=== PATIENT | male | born 1950 | race Caucasian/White ===

== ENCOUNTER 2019-04-06 16:19 | Emergency (ER) | payer MEDICARE, MEDICAID ==
[2019-04-06 16:42] VITALS: BP 140/75; PULSE 79
[2019-04-06] MEDS ORDERED: Sodium Chloride 0.9% 10 ML Syringe FLUSH PRN (17:04)
[2019-04-06] MEDS ORDERED: Sodium Chloride 0.9% 1,000 ML IV SCH (17:15)
--- NOTE | 2019-04-06 17:52 | CT ---
Head CT Technique: Multiple axial sections through the brain were obtained. Intravenous contrast was not utilized. Comparison: Most recent intracranial imaging is brain MRI of 06/08/18. Findings: Ventricles along with basal cisterns and sulci over the convexities are mildly prominent. No abnormal parenchymal densities are seen. No evidence of intracranial hemorrhage. No midline shift or mass effect is seen. Bone window settings were reviewed which show the visualized paranasal sinuses and mastoid sinuses to appear clear. No acute calvarial abnormality is seen. Impression: 1. Mild generalized atrophy. 2. No acute intracranial abnormality is identified. No appreciable change is seen from prior MRI brain exam. Diagnostic code #2
--- NOTE | 2019-04-06 18:13 | EDM.PDOC ---
ED HPI GENERAL MEDICAL PROBLEM - General Chief Complaint: General Stated Complaint: DIZZINESS/LIGHT HEADEDNESS Time Seen by Provider: 04/06/19 16:46 Source of Information: Reports: Patient, Family History Limitations: Reports: No Limitations - History of Present Illness INITIAL COMMENTS - FREE TEXT/NARRATIVE: The patient presents with lightheadedness and dizziness. This started a couple days ago and it is worse today. He also had dry eyes for over a week. He also has palpitations and he had some shortness of breath. He also has trouble walking. He has no fever, chills, cough, or chest pain. He has no nausea or vomiting. He has no numbness or weakness. He just stopped an SSRI 4 days ago. He was on it for about 2 weeks and switched between 3 different ones. He has a runny nose and he says his allergies kick in from the rains. He has no headache. Onset: Gradual Duration: Day(s): Severity: Moderate Improves with: Reports: None Worsens with: Reports: None Associated Symptoms: Denies: Chest Pain, Cough, Fever/Chills, Headaches, Nausea/ Vomiting, Shortness of Breath - Related Data Allergies Allergy/AdvReac Type Severity Reaction Status Date / Time morphine AdvReac Nausea and Verified 04/06/19 16:42 Vomiting Home Meds: Home Meds ClonazePAM [KlonoPIN] 0.5 mg PO TID 04/06/19 [History] Hydrocodone/Acetaminophen [Hydrocodon-Acetaminoph 2.5-325] 0.5 mg PO TID [History] Loratadine [Claritin] 10 mg PO DAILY PRN #30 tab 04/06/19 [Rx] Rosuvastatin [Crestor] 10 mg PO DAILY 04/06/19 [History] amLODIPine [Norvasc] 10 mg PO DAILY 04/06/19 [History] diazePAM [Valium] 5 mg PO TID #15 tab 04/06/19 [Rx] Past Medical History HEENT History: Reports: Allergic Rhinitis, Cataract, Hard of Hearing Cardiovascular History: Reports: High Cholesterol Other Cardiovascular History: mitral valve prolapse Respiratory History: Reports: Asthma, Bronchitis, Recurrent, COPD, Pneumonia, Recurrent, SOB Other Respiratory History: Emphysema Gastrointestinal History: Reports: None Genitourinary History: Reports: BPH, Urinary Incontinence Musculoskeletal History: Reports: Arthritis Neurological History: Reports: None Psychiatric History: Reports: Anxiety, Depression Endocrine/Metabolic History: Reports: None Hematologic History: Reports: None Immunologic History: Reports: None Oncologic (Cancer) History: Reports: None Dermatologic History: Reports: None - Infectious Disease History Infectious Disease History: Reports: Measles, Mumps - Past Surgical History Head Surgeries/Procedures: Reports: None Cardiovascular Surgical History: Reports: None Neurological Surgical History: Reports: Lumbar Spine Musculoskeletal Surgical History: Reports: Shoulder Replacement, Shoulder Surgery Other Musculoskeletal Surgeries/Procedures:: Back Surgery on lumbar spine. Social & Family History - Family History Cardiac: Reports: Pacemaker Oncologic: Reports: Bone, Breast, Prostate - Tobacco Use Smoking Status *Q: Current Every Day Smoker Years of Tobacco use: 45 Packs/Tins Daily: 0.5 - Caffeine Use Caffeine Use: Reports: Coffee, Soda - Recreational Drug Use Recreational Drug Use: No ED ROS GENERAL - Review of Systems Review Of Systems: See Below Constitutional: Reports: No Symptoms HEENT: Reports: Other (Dry eyes) Respiratory: Reports: Shortness of Breath. Denies: Cough Cardiovascular: Reports: No Symptoms Endocrine: Reports: No Symptoms GI/Abdominal: Reports: No Symptoms : Reports: No Symptoms Musculoskeletal: Reports: No Symptoms Neurological: Reports: Dizziness. Denies: Headache ED EXAM, GENERAL - Physical Exam Exam: See Below Exam Limited By: No Limitations General Appearance: Alert, No Apparent Distress Eye Exam: Bilateral Eye: EOMI, PERRL Ears: Normal External Exam Nose: Normal Inspection Head: Atraumatic, Normocephalic Neck: Normal Inspection Respiratory/Chest: No Respiratory Distress, Lungs Clear, Normal Breath Sounds Cardiovascular: Regular Rate, Rhythm, No Edema, No Murmur GI/Abdominal: Soft, Non-Tender, No Organomegaly, No Mass Back Exam: Normal Inspection Extremities: Normal Inspection Neurological: Alert, Oriented, No Motor/Sensory Deficits EKG INTERPRETATION EKG Date: 04/06/19 Time: 17:09 Rhythm: NSR Rate (Beats/Min): 69 [place]: Normal P-Wave: Present QRS: Normal ST-T: Normal QT: Normal Course - Vital Signs Last Recorded V/S: Last Vital Signs Temp 97.4 F 04/06/19 16:38 Pulse 79 04/06/19 16:38 Resp 16 04/06/19 16:38 BP 140/75 04/06/19 16:38 Pulse Ox 96 04/06/19 16:38 - Orders/Labs/Meds Orders: Active Orders 24 hr Category Date Time Status Cardiac Monitoring [RC] . DIRECTED Care 04/06/19 17:04 Active EKG Documentation Completion [RC] STAT Care 04/06/19 17:05 Active Influenza Vaccine Charge [RC] .DISCHARGE Care 04/06/19 16:50 Active Peripheral IV Care [RC] . DIRECTED Care 04/06/19 17:06 Active Chest 1V Frontal [CR] Stat Exams 04/06/19 17:06 Taken Sodium Chloride 0.9% [Normal Saline] 1,000 ml Med 04/06/19 17:15 Active IV ASDIRECTED Sodium Chloride 0.9% [Saline Flush] Med 04/06/19 17:04 Active 10 ml FLUSH ASDIRECTED PRN Peripheral IV Insertion Adult [OM.PC] Stat Oth 04/06/19 17:04 Ordered Medication Orders Sodium Chloride (Normal Saline) 1,000 mls @ 125 mls/hr IV ASDIRECTED BELA Last Admin: 04/06/19 18:14 Dose: 125 mls/hr Sodium Chloride (Saline Flush) 10 ml FLUSH ASDIRECTED PRN PRN Reason: Keep Vein Open Last Admin: 04/06/19 18:15 Dose: 10 ml Labs: Laboratory Tests 04/06/19 04/06/19 Range/Units 17:50 17:50 WBC 6.56 (4.23-9.07) K/mm3 RBC 4.56 L (4.63-6.08) M/mm3 Hgb 13.8 (13.7-17.5) gm/dl Hct 38.6 L (40.1-51.0) % MCV 84.6 (79.0-92.2) fl MCH 30.3 (25.7-32.2) pg MCHC 35.8 H (32.2-35.5) g/dl RDW Std Deviation 40.9 (35.1-43.9) fL Plt Count 251 (163-337) K/mm3 MPV 10.0 (9.4-12.3) fl Neut % (Auto) 62.1 (34.0-67.9) % Lymph % (Auto) 27.1 (21.8-53.1) % [place] % (Auto) 8.4 (5.3-12.2) % Eos % (Auto) 1.8 (0.8-7.0) Baso % (Auto) 0.6 (0.1-1.2) % Neut # (Auto) 4.07 (1.78-5.38) K/mm3 Lymph # (Auto) 1.78 (1.32-3.57) K/mm3 [place] # (Auto) 0.55 (0.30-0.82) K/mm3 Eos # (Auto) 0.12 (0.04-0.54) K/mm3 Baso # (Auto) 0.04 (0.01-0.08) K/mm3 Sodium 137 (136-145) mEq/L Potassium 3.6 (3.5-5.1) mEq/L Chloride 105 (98-107) mEq/L Carbon Dioxide 25 (21-32) mEq/L Anion Gap 10.6 (5-15) BUN 7 (7-18) mg/dL Creatinine 1.1 (0.7-1.3) mg/dL Est Cr Clr Drug Dosing 71.63 mL/min Estimated GFR (MDRD) > 60 (>60) mL/min BUN/Creatinine Ratio 6.4 L (14-18) Glucose 97 (80-115) mg/dL Calcium 8.8 (8.5-10.1) mg/dL Magnesium 2.3 (1.8-2.4) mg/dl Total Bilirubin 0.8 (0.2-1.0) mg/dL AST 12 L (15-37) U/L ALT 23 (16-63) U/L Alkaline Phosphatase 78 (46-116) U/L Troponin I < 0.017 (0.00-0.056) ng/mL Total Protein 6.9 (6.4-8.2) g/dl Albumin 3.6 (3.4-5.0) g/dl Globulin 3.3 gm/dL Albumin/Globulin Ratio 1.1 (1-2) Meds: Medications Generic Name Dose Route Start Last Admin Trade Name Freq PRN Reason Stop Dose Admin Sodium Chloride 1,000 mls @ 125 mls/hr 04/06/19 17:15 04/06/19 18:14 Normal Saline IV 125 mls/hr ASDIRECTED BELA Administration Sodium Chloride 10 ml 04/06/19 17:04 10/01/19 18:15 Saline Flush FLUSH 10 ml ASDIRECTED PRN Administration Keep Vein Open Discontinued Medications Generic Name Dose Route Start Last Admin Trade Name Margaret PRN Reason Stop Dose Admin Diazepam 5 mg 04/06/19 18:22 04/06/19 18:56 Valium IVPUSH 04/06/19 18:23 5 mg ONETIME ONE Administration Influenza Virus Vaccine 180 mcg 04/06/19 17:00 04/06/19 18:15 Fluzone High-Dose 2019-20 Syringe IM 04/06/19 17:01 180 mcg .ONCE ONE Administration - Re-Assessments/Exams Free Text/Narrative Re-Assessment/Exam: 04/06/19 18:20 I ordered an IV NS at 125ml/hr, labs, EKG and CT of his head. His EKG shows a NSR with no acute changes. The CT shows mild generalized atrophy. No acute intracranial abnormality is identified. No appreciable change is seen from prior MRI brain exam. 04/06/19 19:36 His CBC and CMP look good. His troponin is negative. I will get him on some valium and have him stop the SSRIs. I will also have him try some claritin. Departure - Departure Time of Disposition: 19:40 Disposition: Home, Self-Care 01 Condition: Good Clinical Impression: Rhinorrhea Adverse reaction to SSRI antidepressant drug Qualifiers: Encounter type: initial encounter Qualified Code(s): T43.225A - Adverse effect of selective serotonin reuptake inhibitors, initial encounter - Discharge Information *PRESCRIPTION DRUG MONITORING PROGRAM REVIEWED*: No *COPY OF PRESCRIPTION DRUG MONITORING REPORT IN PATIENT REEMA: No Prescriptions: diazePAM [Valium] 5 mg PO TID #15 tab Loratadine [Claritin] 10 mg PO DAILY PRN #30 tab PRN Reason: Allergies Referrals: Abebe Montanez MD [Primary Care Provider] - Forms: ED Department Discharge Additional Instructions: Take the valium 5mg 3 times per day for 5 days. Do not take the klonopin. Take the claritin daily as needed for allergy symptoms. Do not take the prozac or the other medications. Please return if you are worse. - My Orders Last 24 Hours: My Active Orders 04/06/19 16:50 Influenza Vaccine Charge [RC] .DISCHARGE 04/06/19 17:04 Cardiac Monitoring [RC] . DIRECTED Sodium Chloride 0.9% [Saline Flush] 10 ml FLUSH ASDIRECTED PRN Peripheral IV Insertion Adult [OM.PC] Stat 04/06/19 17:05 EKG Documentation Completion [RC] STAT 04/06/19 17:06 Peripheral IV Care [RC] . DIRECTED Chest 1V Frontal [CR] Stat 04/06/19 17:15 Sodium Chloride 0.9% [Normal Saline] 1,000 ml IV ASDIRECTED - Assessment/Plan Last 24 Hours: My Active Orders 04/06/19 16:50 Influenza Vaccine Charge [RC] .DISCHARGE 04/06/19 17:04 Cardiac Monitoring [RC] . DIRECTED Sodium Chloride 0.9% [Saline Flush] 10 ml FLUSH ASDIRECTED PRN Peripheral IV Insertion Adult [OM.PC] Stat 04/06/19 17:05 EKG Documentation Completion [RC] STAT 04/06/19 17:06 Peripheral IV Care [RC] . DIRECTED Chest 1V Frontal [CR] Stat 04/06/19 17:15 Sodium Chloride 0.9% [Normal Saline] 1,000 ml IV ASDIRECTED
--- NOTE | 2019-04-07 06:54 | CR ---
Chest: Portable view of the chest was obtained. Comparison: Prior chest x-ray of 06/11/16. Heart size is within normal limits for portable technique. Tortuous thoracic aorta is seen. Nodule is identified within the right lung base. This presumably is due to a calcification. Lungs otherwise are clear. Bony structures are grossly intact. Impression: 1. Findings as noted above believed to be incidental. 2. Nothing acute is appreciated on portable chest x-ray. Diagnostic code #2
== END 2019-04-06 19:59 | disposition home or self-care (01) ==
LOC: JD.ED 16:19
DX: J34.89 Other specified disorders of nose and nasal sinuses (principal); T43.225A Adverse effect of selective serotonin reuptake inhibitors, initial encounter; F17.210 Nicotine dependence, cigarettes, uncomplicated; H26.9 Unspecified cataract; E78.00 Pure hypercholesterolemia, unspecified; J43.9 Emphysema, unspecified; J45.909 Unspecified asthma, uncomplicated; F41.9 Anxiety disorder, unspecified; Z88.5 Allergy status to narcotic agent; Z23 Encounter for immunization; Z79.899 Other long term (current) drug therapy
CPT/HCPCS: 36415; 70450; 71045; 80053; 83735; 84484; 85025; 90662; 93005; 96361; 96374; 99284; G0008; J3360; J7040

== ENCOUNTER 2019-06-24 07:19 | Day surgery (SDC) | payer MEDICARE, MEDICAID ==
[~2019-06-24 07:19] MED LIST: Cefuroxime 10 MG/ML SYRINGE EYELF SCH; Lidocaine 1% PF 2 ML SDV INJECT SCH; Pilocarpine 4% Ophth Soln 15 ML Bot EYELF SCH
[2019-06-24] MEDS: Polymyxin B/Trimethoprim 10 ML Bottle EYELF SCH ×3 (07:42→09:26)
--- NOTE | 2019-06-24 07:42 | PCM.PREANE ---
Preanesthetic Assessment - Anesthesia/Transfusion/Family Hx Anesthesia History: Prior Anesthesia Without Reaction Family History of Anesthesia Reaction: No Transfusion History: No Prior Transfusion(s) - Review of Systems General: No Symptoms Pulmonary: Other (asthma, used inhaler this am) Cardiovascular: No Symptoms Other: Reports: Depression, Anxiety - Physical Assessment NPO Status Date: 06/23/19 NPO Status Time: 20:15 Weight: 89.811 kg ASA Class: 2 Mental Status: Alert & Oriented x3 Dentition: Reports: Missing Tooth/Teeth ROM/Head Extension: Full Lungs: Clear to Auscultation Cardiovascular: Regular Rate, Regular Rhythm, Bradycardia, Murmurs - Allergies Allergies/Adverse Reactions: Allergies Allergy/AdvReac Type Severity Reaction Status Date / Time morphine AdvReac Nausea and Verified 06/23/19 17:01 Vomiting - Blood Blood Available: No Product(s) Available: None - Anesthesia Plan Pre-Op Medication Ordered: None - Acknowledgements Anesthesia Type Planned: MAC Pt an Appropriate Candidate for the Planned Anesthesia: Yes Alternatives and Risks of Anesthesia Discussed w Pt/Guardian: Yes Pt/Guardian Understands and Agrees with Anesthesia Plan: Yes PreAnesthesia Questionnaire HEENT History: Reports: Allergic Rhinitis, Cataract, Hard of Hearing Cardiovascular History: Reports: High Cholesterol Other Cardiovascular History: mitral valve prolapse Respiratory History: Reports: Asthma, Bronchitis, Recurrent, COPD, Pneumonia, Recurrent, SOB Other Respiratory History: Emphysema Gastrointestinal History: Reports: None Genitourinary History: Reports: BPH, Urinary Incontinence Musculoskeletal History: Reports: Arthritis Neurological History: Reports: None Psychiatric History: Reports: Anxiety, Depression Endocrine/Metabolic History: Reports: None Hematologic History: Reports: None Immunologic History: Reports: None Oncologic (Cancer) History: Reports: None Dermatologic History: Reports: None - Infectious Disease History Infectious Disease History: Reports: Measles, Mumps - Past Surgical History Head Surgeries/Procedures: Reports: None Cardiovascular Surgical History: Reports: None Neurological Surgical History: Reports: Lumbar Spine Musculoskeletal Surgical History: Reports: Shoulder Replacement, Shoulder Surgery Other Musculoskeletal Surgeries/Procedures:: Back Surgery on lumbar spine. - HOME MEDS Home Medications: Home Meds ClonazePAM [KlonoPIN] 0.5 mg PO TID PRN 04/06/19 [History] Loratadine [Claritin] 10 mg PO DAILY PRN #30 tab 04/06/19 [Rx] Rosuvastatin [Crestor] 10 mg PO DAILY 10/01/19 [History] amLODIPine [Norvasc] 5 mg PO DAILY 04/06/19 [History] Albuterol/Ipratropium [Combivent Respimat] 1 puff IH QID PRN 05/26/19 [History] FLUoxetine HCl [Prozac] 40 mg PO DAILY 05/26/19 [History] - CURRENT (IN HOUSE) MEDS Current Meds: Current Medications Brimonidine Tartrate (Alphagan 0.2% Ophth Soln) 0 ml EYELF ASDIRECTED BELA Stop: 06/24/19 18:00 Cefuroxime Sodium (Zinacef) 0 mg EYELF ASDIRECTED BELA Stop: 06/24/19 18:00 Lidocaine HCl (Xylocaine-Mpf 1%) 0 ml INJECT ASDIRECTED BELA Stop: 06/24/19 18:00 Phenylephrine HCl (Flo-Synephrine 2.5% Ophth Soln) 0 ml EYELF ASDIRECTED BELA Stop: 06/24/19 18:00 Pilocarpine HCl (Pilocar 4% Ophth Soln) 0 ml EYELF ASDIRECTED BELA Stop: 06/24/19 18:00 Polymyxin/Trimethoprim Sulfate (Polytrim Ophth Soln) 0 ml EYELF ASDIRECTED BELA Stop: 06/24/19 18:00 Tetracaine HCl (Tetracaine 0.5% Steri-Unit Paige) 0 ml EYELF ASDIRECTED BELA Stop: 06/24/19 18:00 Tropicamide (Mydriacyl 1% Ophth Soln) 0 ml EYELF ASDIRECTED BELA Stop: 06/24/19 18:00
[2019-06-24] MEDS: Brimonidine 0.2% Ophth Soln 5 ML Bottle EYELF SCH ×3 (07:49→09:26)
[2019-06-24] MEDS: Phenylephrine 2.5% Ophth Soln 2 ML Bot EYELF SCH ×5 (07:54→09:00)
[2019-06-24] MEDS: Tropicamide 1% Ophth Soln 15 ML Bottle EYELF SCH ×4 (07:59→08:43)
[2019-06-24] MEDS ORDERED: Propofol 200 MG/20 ML SDV ONE (08:12)
[2019-06-24] MEDS ORDERED: Lidocaine 1%/Sod Bicarbonate in NS 8.4% 1 ML Syringe IDERM PRN (08:18)
[2019-06-24] MEDS ORDERED: Sodium Chloride 0.9% 10 ML Syringe FLUSH PRN (08:18)
[2019-06-24] MEDS ORDERED: Lactated Ringers 1,000 ML IV SCH (08:30)
[2019-06-24] MEDS: Tetracaine HCl/PF 0.5% 4 ML Bottle EYELF SCH ×2 (08:46→09:06)
--- NOTE | 2019-06-24 09:27 | PCM48HPAN ---
Post Anesthesia Note - EVALUATION WITHIN 48HRS OF ANESTHETIC Vital Signs in Normal Range: Yes Patient Participated in Evaluation: Yes Respiratory Function Stable: Yes Airway Patent: Yes Cardiovascular Function Stable: Yes Hydration Status Stable: Yes Pain Control Satisfactory: Yes Nausea and Vomiting Control Satisfactory: Yes Mental Status Recovered: Yes Vital Signs: Last Vital Signs Temp 36.2 C 06/24/19 07:25 Pulse 85 06/24/19 07:25 Resp 16 06/24/19 07:25 BP 115/81 06/24/19 07:25 Pulse Ox 94 L 06/24/19 07:25
[2019-06-24 10:08] VITALS: BP 111/73; PULSE 66
== END 2019-06-24 09:40 | disposition home or self-care (01) ==
LOC: JD.SDS 07:19
PROVIDERS: ATTEND Ophthalmology
DX: H25.812 Combined forms of age-related cataract, left eye (principal); H52.31 Anisometropia; H35.373 Puckering of macula, bilateral; H43.811 Vitreous degeneration, right eye; H02.831 Dermatochalasis of right upper eyelid; H02.834 Dermatochalasis of left upper eyelid; I10 Essential (primary) hypertension; E78.00 Pure hypercholesterolemia, unspecified; J43.9 Emphysema, unspecified; M19.90 Unspecified osteoarthritis, unspecified site; F41.9 Anxiety disorder, unspecified; F32.9 Major depressive disorder, single episode, unspecified; F17.210 Nicotine dependence, cigarettes, uncomplicated; Z96.1 Presence of intraocular lens; Z88.5 Allergy status to narcotic agent
CPT/HCPCS: 66984; J0697; J2001; J2704; J7120

== ENCOUNTER 2019-06-30 09:53 | Emergency (ER) | payer MEDICARE, MEDICAID ==
[2019-06-30 10:12] VITALS: BP 140/86; PULSE 81
[2019-06-30] MEDS ORDERED: Famotidine 20 MG/2 ML SDV IVPUSH ONE (10:16)
[2019-06-30] MEDS ORDERED: Sodium Chloride 0.9% 10 ML Syringe FLUSH PRN (10:16)
[2019-06-30] MEDS ORDERED: Ondansetron 4 MG/2 ML SDV IVPUSH ONE (10:16)
--- NOTE | 2019-06-30 10:17 | EDM.PDOC ---
ED HPI GENERAL MEDICAL PROBLEM - General Chief Complaint: Abdominal Pain Stated Complaint: ABD PAIN, SLEEPING ALOT, DIZZY Time Seen by Provider: 06/30/19 10:15 Source of Information: Reports: Patient, RN Notes Reviewed - History of Present Illness INITIAL COMMENTS - FREE TEXT/NARRATIVE: Patient has had abdominal pain, nausea, no appetite for many days. Feels weak, dizzy when standing or walking. No Baker, fever or chills. Just had cataract surgery about 6 days ago. No eye pain or visual difficulty at this time. Abdomen Pain Score (Numeric/FACES): 8 - Related Data Allergies Allergy/AdvReac Type Severity Reaction Status Date / Time morphine AdvReac Nausea and Verified 06/30/19 10:04 Vomiting Home Meds: Home Meds ClonazePAM [KlonoPIN] 0.5 mg PO TID PRN 04/06/19 [History] Loratadine [Claritin] 10 mg PO DAILY PRN #30 tab 04/06/19 [Rx] Rosuvastatin [Crestor] 10 mg PO DAILY 04/06/19 [History] amLODIPine [Norvasc] 7.5 mg PO DAILY 04/06/19 [History] Albuterol/Ipratropium [Combivent Respimat] 1 puff IH QID PRN 05/26/19 [History] FLUoxetine HCl [Prozac] 40 mg PO DAILY 05/26/19 [History] Albuterol/Ipratropium [Combivent Respimat] 3 inh INH TID 06/30/19 [History] Hydrocodone/Acetaminophen [Hydrocodon-Acetaminophn 10-325] 1 tab PO QID [History] Past Medical History HEENT History: Reports: Allergic Rhinitis, Cataract, Hard of Hearing Cardiovascular History: Reports: High Cholesterol Other Cardiovascular History: mitral valve prolapse Respiratory History: Reports: Asthma, Bronchitis, Recurrent, COPD, Pneumonia, Recurrent, SOB Other Respiratory History: Emphysema Gastrointestinal History: Reports: None Genitourinary History: Reports: BPH, Urinary Incontinence Musculoskeletal History: Reports: Arthritis Neurological History: Reports: None Psychiatric History: Reports: Anxiety, Depression Endocrine/Metabolic History: Reports: None Hematologic History: Reports: None Immunologic History: Reports: None Oncologic (Cancer) History: Reports: None Dermatologic History: Reports: None - Infectious Disease History Infectious Disease History: Reports: Measles, Mumps - Past Surgical History Head Surgeries/Procedures: Reports: None Cardiovascular Surgical History: Reports: None Neurological Surgical History: Reports: Lumbar Spine Musculoskeletal Surgical History: Reports: Shoulder Replacement, Shoulder Surgery Other Musculoskeletal Surgeries/Procedures:: Back Surgery on lumbar spine. Social & Family History - Family History Cardiac: Reports: Pacemaker Oncologic: Reports: Bone, Breast, Prostate - Caffeine Use Caffeine Use: Reports: Coffee, Soda ED ROS GENERAL - Review of Systems Review Of Systems: See Below Constitutional: Denies: Fever, Chills, Diaphoresis HEENT: Denies: Throat Pain, Vertigo, Vision Change Respiratory: Denies: Shortness of Breath Cardiovascular: Denies: Chest Pain GI/Abdominal: Reports: Nausea, Vomiting (times 1 earlier today). Denies: Abdominal Pain, Diarrhea Musculoskeletal: Reports: No Symptoms Neurological: Reports: Dizziness, Weakness (generalized, no focal weakness). Denies: Headache, Numbness, Tingling, Trouble Speaking ED EXAM, GI/ABD - Physical Exam Exam: See Below General Appearance: Alert, No Apparent Distress Throat/Mouth: Normal Inspection, Normal Oropharynx Head: Atraumatic. No: Facial Swelling Neck: Supple, Full Range of Motion Respiratory/Chest: No Respiratory Distress, Lungs Clear, Normal Breath Sounds Cardiovascular: Regular Rate, Rhythm GI/Abdominal Exam: Soft, Tender (mild diffuse tenderness upper and mid abd). No : Guarding, Rebound Extremities: Normal Inspection, Normal Range of Motion. No: Pedal Edema, Leg Pain, Redness Neurological: Alert, Oriented, No Motor/Sensory Deficits Skin Exam: Warm, Dry, Normal Color Course - Vital Signs Last Recorded V/S: Last Vital Signs Temp 98.3 F 06/30/19 10:04 Pulse 81 06/30/19 10:04 Resp 15 06/30/19 10:04 BP 140/86 06/30/19 10:04 Pulse Ox 97 06/30/19 10:04 - Orders/Labs/Meds Orders: Active Orders 24 hr Category Date Time Status Peripheral IV Care [RC] . DIRECTED Care 06/30/19 10:17 Active Sodium Chloride 0.9% [Normal Saline] 1,000 ml Med 06/30/19 10:30 Active IV ONETIME Sodium Chloride 0.9% [Saline Flush] Med 06/30/19 10:16 Active 10 ml FLUSH ASDIRECTED PRN Peripheral IV Insertion Adult [OM.PC] Stat Oth 06/30/19 10:16 Ordered Medication Orders Sodium Chloride (Normal Saline) 1,000 mls @ 999 mls/hr IV ONETIME BELA Last Admin: 06/30/19 10:28 Dose: 999 mls/hr Sodium Chloride (Saline Flush) 10 ml FLUSH ASDIRECTED PRN PRN Reason: Keep Vein Open Last Admin: 06/30/19 10:29 Dose: 10 ml Labs: Laboratory Tests 06/30/19 06/30/19 06/30/19 Range/Units 10:25 10:25 10:25 WBC 5.84 (4.23-9.07) K/mm3 RBC 4.86 (4.63-6.08) M/mm3 Hgb 14.3 (13.7-17.5) gm/dl Hct 40.8 (40.1-51.0) % MCV 84.0 (79.0-92.2) fl MCH 29.4 (25.7-32.2) pg MCHC 35.0 (32.2-35.5) g/dl RDW Std Deviation 38.6 (35.1-43.9) fL Plt Count 236 (163-337) K/mm3 MPV 9.7 (9.4-12.3) fl Neut % (Auto) 70.6 H (34.0-67.9) % Lymph % (Auto) 17.3 L (21.8-53.1) % [place] % (Auto) 9.2 (5.3-12.2) % Eos % (Auto) 2.6 (0.8-7.0) Baso % (Auto) 0.3 (0.1-1.2) % Neut # (Auto) 4.12 (1.78-5.38) K/mm3 Lymph # (Auto) 1.01 L (1.32-3.57) K/mm3 [place] # (Auto) 0.54 (0.30-0.82) K/mm3 Eos # (Auto) 0.15 (0.04-0.54) K/mm3 Baso # (Auto) 0.02 (0.01-0.08) K/mm3 Sodium 141 (136-145) mEq/L Potassium 3.5 (3.5-5.1) mEq/L Chloride 105 (98-107) mEq/L Carbon Dioxide 23 (21-32) mEq/L Anion Gap 16.5 H (5-15) BUN 8 (7-18) mg/dL Creatinine 1.0 (0.7-1.3) mg/dL Est Cr Clr Drug Dosing 78.79 mL/min Estimated GFR (MDRD) > 60 (>60) mL/min BUN/Creatinine Ratio 8.0 L (14-18) Glucose 98 (80-115) mg/dL Calcium 8.6 (8.5-10.1) mg/dL Total Bilirubin 1.3 H (0.2-1.0) mg/dL AST 15 (15-37) U/L ALT 25 (16-63) U/L Alkaline Phosphatase 84 (46-116) U/L C-Reactive Protein < 0.2 (<1.0) mg/dL Total Protein 7.4 (6.4-8.2) g/dl Albumin 3.9 (3.4-5.0) g/dl Globulin 3.5 gm/dL Albumin/Globulin Ratio 1.1 (1-2) Lipase (73-393) U/L 06/30/19 Range/Units 10:25 WBC (4.23-9.07) K/mm3 RBC (4.63-6.08) M/mm3 Hgb (13.7-17.5) gm/dl Hct (40.1-51.0) % MCV (79.0-92.2) fl MCH (25.7-32.2) pg MCHC (32.2-35.5) g/dl RDW Std Deviation (35.1-43.9) fL Plt Count (163-337) K/mm3 MPV (9.4-12.3) fl Neut % (Auto) (34.0-67.9) % Lymph % (Auto) (21.8-53.1) % [place] % (Auto) (5.3-12.2) % Eos % (Auto) (0.8-7.0) Baso % (Auto) (0.1-1.2) % Neut # (Auto) (1.78-5.38) K/mm3 Lymph # (Auto) (1.32-3.57) K/mm3 [place] # (Auto) (0.30-0.82) K/mm3 Eos # (Auto) (0.04-0.54) K/mm3 Baso # (Auto) (0.01-0.08) K/mm3 Sodium (136-145) mEq/L Potassium (3.5-5.1) mEq/L Chloride (98-107) mEq/L Carbon Dioxide (21-32) mEq/L Anion Gap (5-15) BUN (7-18) mg/dL Creatinine (0.7-1.3) mg/dL Est Cr Clr Drug Dosing mL/min Estimated GFR (MDRD) (>60) mL/min BUN/Creatinine Ratio (14-18) Glucose (80-115) mg/dL Calcium (8.5-10.1) mg/dL Total Bilirubin (0.2-1.0) mg/dL AST (15-37) U/L ALT (16-63) U/L Alkaline Phosphatase (46-116) U/L C-Reactive Protein (<1.0) mg/dL Total Protein (6.4-8.2) g/dl Albumin (3.4-5.0) g/dl Globulin gm/dL Albumin/Globulin Ratio (1-2) Lipase 59 L (73-393) U/L Meds: Medications Generic Name Dose Route Start Last Admin Trade Name Freq PRN Reason Stop Dose Admin Sodium Chloride 1,000 mls @ 999 mls/hr 06/30/19 10:30 06/30/19 10:28 Normal Saline IV 999 mls/hr ONETIME BELA Administration Sodium Chloride 10 ml 06/30/19 10:16 06/30/19 10:29 Saline Flush FLUSH 10 ml ASDIRECTED PRN Administration Keep Vein Open Discontinued Medications Generic Name Dose Route Start Last Admin Trade Name Freq PRN Reason Stop Dose Admin Famotidine 20 mg 06/30/19 10:16 06/30/19 10:29 Pepcid IVPUSH 06/30/19 10:17 20 mg ONETIME ONE Administration Ondansetron HCl 4 mg 06/30/19 10:16 06/30/19 10:29 Zofran IVPUSH 06/30/19 10:17 4 mg ONETIME ONE Administration - Re-Assessments/Exams Free Text/Narrative Re-Assessment/Exam: 06/30/19 12:16 Feels very much better after 1 L normal saline, IV Zofran. Labs came back relatively normal showing very mild dehydration only. Discharge instructions as documented. Departure - Departure Time of Disposition: 12:16 Disposition: Home, Self-Care 01 Condition: Fair Clinical Impression: Dizziness, nonspecific, Dehydration - Discharge Information Referrals: Abebe Montanez MD [Primary Care Provider] - Forms: ED Department Discharge Additional Instructions: Drink plenty of water to better maintain hydration, try eat regular meals and snacks as best he can as tolerated. Moves slowly and carefully, increase activity as tolerated. Follow-up clinic in a couple of weeks as planned, return to ED as needed if symptoms worsening in any way Sepsis Event Note - Evaluation Sepsis Screening Result: No Definite Risk - Focused Exam Vital Signs: Vital Signs Temp Pulse Resp BP Pulse Ox 06/30/19 10:04 98.3 F 81 15 140/86 97 Date Exam was Performed: 06/30/19 Time Exam was Performed: 12:16 - My Orders Last 24 Hours: My Active Orders 06/30/19 10:16 Sodium Chloride 0.9% [Saline Flush] 10 ml FLUSH ASDIRECTED PRN Peripheral IV Insertion Adult [OM.PC] Stat 06/30/19 10:17 Peripheral IV Care [RC] . DIRECTED 06/30/19 10:30 Sodium Chloride 0.9% [Normal Saline] 1,000 ml IV ONETIME - Assessment/Plan Last 24 Hours: My Active Orders 06/30/19 10:16 Sodium Chloride 0.9% [Saline Flush] 10 ml FLUSH ASDIRECTED PRN Peripheral IV Insertion Adult [OM.PC] Stat 06/30/19 10:17 Peripheral IV Care [RC] . DIRECTED 06/30/19 10:30 Sodium Chloride 0.9% [Normal Saline] 1,000 ml IV ONETIME
[2019-06-30] MEDS ORDERED: Sodium Chloride 0.9% 1,000 ML IV SCH (10:30)
== END 2019-06-30 12:41 | disposition home or self-care (01) ==
LOC: JD.ED 09:53
DX: E86.0 Dehydration (principal); F41.9 Anxiety disorder, unspecified; F32.9 Major depressive disorder, single episode, unspecified; E78.00 Pure hypercholesterolemia, unspecified; Z88.5 Allergy status to narcotic agent
CPT/HCPCS: 36415; 80053; 83690; 85025; 86140; 96361; 96374; 96375; 99284; J2405; J3490; J7030; 99283

== ENCOUNTER 2020-10-31 08:10 | Day surgery (SDC) | payer MEDICARE, MEDICAID ==
[~2020-10-31 08:10] MED LIST changes: -Cefuroxime 10 MG/ML SYRINGE EYELF SCH; -Lidocaine 1% PF 2 ML SDV INJECT SCH; +Lidocaine 1%/Sod Bicarbonate in NS 8.4% 1 ML Syringe IDERM PRN; -Pilocarpine 4% Ophth Soln 15 ML Bot EYELF SCH; +Sodium Chloride 0.9% 10 ML Syringe FLUSH PRN
[2020-10-31] MEDS: Lactated Ringers 1,000 ML IV SCH ×2 (08:35→10:15)
--- NOTE | 2020-10-31 10:23 | PCM.PREANE ---
Preanesthetic Assessment - Procedure Proposed Procedure: Diagnostic EGD, and Screening Colonoscopy - Anesthesia/Transfusion/Family Hx Anesthesia History: Prior Anesthesia Without Reaction Family History of Anesthesia Reaction: No Transfusion History: No Prior Transfusion(s) Intubation History: Unknown - Review of Systems General: Fatigue Pulmonary: No Symptoms (COPD: smoker= 1/2ppd times 55 years), Cough (morning) Cardiovascular: No Symptoms (Elevated cholesterol/HTN/history of murmur due to mitral valve disorder), Dyspnea on Exertion Gastrointestinal: No Symptoms (GERD), Decreased Appetite Neurological: No Symptoms (chronic back pain on chronic narcotics for back pain 09/13, vertigo, motion sickness, spinal stenosis with lumbar radiculopathy), Numbness (bilateral feet) Other: Reports: Easy Bruising, Sinus Problem (seasonal allergies), Depression, Anxiety - Physical Assessment NPO Status Date: 10/30/20 NPO Status Time: 07:00 Vital Signs: Last Vital Signs Temp 36.4 C 10/31/20 08:30 Pulse 74 10/31/20 08:30 Resp 16 10/31/20 08:30 BP 135/93 H 10/31/20 08:30 Pulse Ox 96 10/31/20 08:30 Height: 1.85 m Weight: 88.451 kg ASA Class: 3 Mental Status: Alert & Oriented x3 Airway Class: Mallampati = 2 Dentition: Reports: Normal Dentition, Missing Tooth/Teeth, Caries Thyro-Mental Finger Breadths: 3 Mouth Opening Finger Breadths: 3 ROM/Head Extension: Full Lungs: Clear to Auscultation, Normal Respiratory Effort Cardiovascular: Regular Rate, Regular Rhythm, No Murmurs - Lab Values: All labs reviewed and noted and within acceptable ranges to proceed with scheduled procedure. - Imaging/EKG Impressions: EKG: SR rate = 73 Stress Test: nothing acute noted. - Allergies Allergies/Adverse Reactions: Allergies Allergy/AdvReac Type Severity Reaction Status Date / Time morphine AdvReac Nausea and Verified 10/31/20 09:39 Vomiting - Anesthesia Plan Pre-Op Medication Ordered: None - Acknowledgements Anesthesia Type Planned: MAC Pt an Appropriate Candidate for the Planned Anesthesia: Yes Alternatives and Risks of Anesthesia Discussed w Pt/Guardian: Yes Pt/Guardian Understands and Agrees with Anesthesia Plan: Yes PreAnesthesia Questionnaire HEENT History: Reports: Allergic Rhinitis, Cataract, Hard of Hearing, Other (See Below) Other HEENT History: hearing loss, tinnitis Cardiovascular History: Reports: Heart Murmur, High Cholesterol Other Cardiovascular History: mitral valve prolapse Respiratory History: Reports: Asthma, Bronchitis, Recurrent, COPD, Pneumonia, Recurrent, SOB Other Respiratory History: Emphysema Gastrointestinal History: Reports: GERD, Other (See Below) Other Gastrointestinal History: abdominal pain, bloating, gas Genitourinary History: Reports: BPH, Urinary Incontinence, Other (See Below) Other Genitourinary History: abnormal UA UPPER SHAPER History: Reports: None Musculoskeletal History: Reports: Arthritis, Other (See Below) Other Musculoskeletal History: right arm pain, back pain, degenerative joint disease, weakness, left arm swelling, lumbar pain Neurological History: Reports: Vertigo, Other (See Below) Other Neuro History: dizziness Psychiatric History: Reports: Anxiety, Depression, Other (See Below) Other Psychiatric History: ETOH abx Endocrine/Metabolic History: Reports: None Hematologic History: Reports: None Immunologic History: Reports: None Oncologic (Cancer) History: Reports: None Dermatologic History: Reports: Psoriasis, Other (See Below) Other Dermatologic History: facial rash, dog bite - Infectious Disease History Infectious Disease History: Reports: Measles, Mumps - Past Surgical History Head Surgeries/Procedures: Reports: None HEENT Surgical History: Reports: Cataract Surgery Cardiovascular Surgical History: Reports: None Respiratory Surgical History: Reports: None GI Surgical History: Reports: None Female Surgical History: Reports: None Male Surgical History: Reports: None 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 Oncologic Surgical History: Reports: None - SUBSTANCE USE Tobacco Use Status *Q: Current Every Day Tobacco User Recreational Drug Use History: No - HOME MEDS Home Medications: Home Meds ClonazePAM [KlonoPIN] 0.5 mg PO TID PRN 04/06/19 [History] Rosuvastatin [Crestor] 10 mg PO DAILY 04/06/19 [History] amLODIPine [Norvasc] 7.5 mg PO DAILY 04/06/19 [History] Albuterol/Ipratropium [Combivent Respimat] 3 inh INH QID 06/30/19 [History] Hydrocodone/Acetaminophen [Hydrocodone-Acetamin 10-325 mg] 1 tab PO Q12H PRN 06/30/19 [History] Albuterol [Proventil Neb Soln] 1 dose NEB Q2H PRN 10/30/20 [History] Cholecalciferol (Vitamin D3) [Vitamin D3] 1,000 unit PO DAILY 10/30/20 [History] Cyanocobalamin (Vitamin B-12) [Vitamin B-12] 1,000 mcg PO DAILY 10/30/20 [History] Dexlansoprazole [Dexilant] 30 mg PO DAILY 10/30/20 [History] Famotidine [Pepcid] 40 mg PO DAILY 10/30/20 [History] Fluticasone Propionate [Flonase] 1 dose NASBOTH DAILY 10/30/20 [History] Levocetirizine Dihydrochloride [Xyzal] 5 mg PO DAILY 10/30/20 [History] Pantoprazole Sodium [Protonix] 40 mg PO DAILY 10/30/20 [History] - CURRENT (IN HOUSE) MEDS Current Meds: Current Medications Lactated Ringer's (Ringers, Lactated) 1,000 mls @ 125 mls/hr IV ASDIRECTED BELA Stop: 10/31/20 23:00 Last Admin: 10/31/20 08:35 Dose: 125 mls/hr Documented by: Lidocaine/Sodium Bicarbonate (Lidocaine 1%/Sod Bicarbonate In Ns 8.4% 1 Ml Syringe) 0.25 ml IDERM ONETIME PRN PRN Reason: Prior to IV Start Stop: 10/31/20 18:00 Last Admin: 10/31/20 08:35 Dose: 0.25 ml Documented by: Sodium Chloride (Sodium Chloride 0.9% 10 Ml Syringe) 10 ml FLUSH ASDIRECTED PRN PRN Reason: Keep Vein Open Stop: 10/31/20 18:00
[2020-10-31] MEDS ORDERED: Propofol 200 MG/20 ML SDV ONE ×2 (10:31→11:17)
[2020-10-31] MEDS ORDERED: fentaNYL 100 MCG/2 ML SDV ONE (10:31)
[2020-10-31] MEDS ORDERED: Lidocaine 1% 4 ML ONE (10:31)
--- NOTE | 2020-10-31 12:03 | PCM48HPAN ---
Post Anesthesia Note - EVALUATION WITHIN 48HRS OF ANESTHETIC Vital Signs in Normal Range: Yes Patient Participated in Evaluation: Yes Respiratory Function Stable: Yes Airway Patent: Yes Cardiovascular Function Stable: Yes Hydration Status Stable: Yes Pain Control Satisfactory: Yes Nausea and Vomiting Control Satisfactory: Yes Mental Status Recovered: Yes Vital Signs: Last Vital Signs Temp 36.4 C 10/31/20 08:30 Pulse 74 10/31/20 08:30 Resp 16 10/31/20 08:30 BP 135/93 H 10/31/20 08:30 Pulse Ox 96 10/31/20 08:30
--- NOTE | 2020-10-31 12:07 | PCM.PRNOTE ---
- Free Text/Narrative Note: Date: 10/31/2020 Procedure: diagnostic esophagogastroduodenoscopy and screening colonoscopy History: bloating, abdominal pain, and history of multiple colon polyps with last colonoscopy about 4 years ago. Endoscopist: Eliu Shelby MD Findings: small white mucosal plaque in duodenum. Small hiatal hernia. Gross ap pearance of reflux esophagitis. Multiple small polyps throughout the colon- prep was fair. Detailed Report: The patient was taken to the endoscopy suite and placed in left lateral decubitus position. Timeout was performed, a bite-block was placed and monitored anesthesia care was initiated. The endoscope was inserted into the mouth and advanced to the duodenum with ease. Within the duodenum, mucosal overall appeared normal. There is a small punctate area of white plaque lateral to the ampulla. Biopsies were obtained of this tissue using cold forceps. Scope was withdrawn into the stomach. The pylorus, antrum, body, incisura all appeared normal. A biopsy of gastric antral mucosa was obtained with cold forceps. On retroflexion, a small sliding hiatal hernia was appreciated. The s cope was withdrawn into the distal esophagus. There appeared to be some exudative change in the distal esophagus consistent with reflux esophagitis. Biopsies were obtained of the distal esophagus. Within the mid body of the esophagus were several slightly raised whitish plaque-like lesions. A biopsy was obtained with cold forceps. The larynx and vocal cords were visualized and appeared normal. Air was suctioned from the stomach prior to withdrawal of the scope. Next attention was turned to colonoscopy. Visual inspection of the anus was unremarkable. Digital rectal exam was unremarkable. The colonoscope was inserted and advanced all the way to the cecum. The appendiceal orifice was visualized. Prep was fair, there was a lot of dark black fluid and lots of bubbles. The scope was slowly withdrawn and mucosal surfaces carefully inspected. Within the cecum was a flat, broad-based sessile polyp not quite 1 cm in length. This was removed piecemeal with cold forceps, and the remnant tissue was fulgurated. Along the length of the colon several small polyps were encountered. As a's were seen they were biopsied with cold forceps. Any remnant tissue that appeared polypoid in nature was fulgurated. There were several benign-appearing polyps consistent grossly with the appearance of hyperplastic polyps in the distal sigmoid and rectum. Several of these were sampled with biopsy forceps. A larger well-circumscribed polyp in the rectum was identified, and this was removed using snare polypectomy technique. Air was suctioned from the distal colon and rectum prior to withdrawal of the scope. No pathology was noted on retroflexion of the scope within the rectum.
[2020-10-31 12:55] VITALS: BP 135/89; PULSE 63
== END 2020-10-31 12:50 | disposition home or self-care (01) ==
LOC: JD.SDS 08:10
PROVIDERS: ATTEND Surgery
DX: D12.0 Benign neoplasm of cecum (principal); D12.3 Benign neoplasm of transverse colon; D12.5 Benign neoplasm of sigmoid colon; K62.1 Rectal polyp; K44.9 Diaphragmatic hernia without obstruction or gangrene; K21.00 Gastro-esophageal reflux disease with esophagitis, without bleeding; K31.89 Other diseases of stomach and duodenum; G89.29 Other chronic pain; N40.1 Benign prostatic hyperplasia with lower urinary tract symptoms; R35.1 Nocturia; J44.1 Chronic obstructive pulmonary disease with (acute) exacerbation; F17.210 Nicotine dependence, cigarettes, uncomplicated; I10 Essential (primary) hypertension; E78.00 Pure hypercholesterolemia, unspecified; K21.9 Gastro-esophageal reflux disease without esophagitis; Z88.5 Allergy status to narcotic agent; Z98.890 Other specified postprocedural states
CPT/HCPCS: 43239; 45380; 45385; J2704; J3010; J7120

== ENCOUNTER 2022-05-11 02:25 | Emergency (ER) | payer MEDICARE, MEDICAID ==
[2022-05-11] MEDS ORDERED: Lactated Ringers 1,000 ML IV SCH (03:00)
[2022-05-11] MEDS ORDERED: Potassium Chloride 20 MEQ Tab.ER PO ONE (04:53)
[2022-05-11 05:22] VITALS: BP 136/84; PULSE 86
== END 2022-05-11 05:21 | disposition home or self-care (01) ==
LOC: JD.ED 02:25
DX: U07.1 COVID-19 (principal); J43.9 Emphysema, unspecified; E78.00 Pure hypercholesterolemia, unspecified; M19.90 Unspecified osteoarthritis, unspecified site; Z88.5 Allergy status to narcotic agent; Z79.899 Other long term (current) drug therapy
CPT/HCPCS: 36415; 71045; 80053; 84484; 85025; 85379; 85610; 93005; 96360; 96361; 99285; A9270; J7120

== ENCOUNTER 2022-08-14 17:59 | Emergency (ER) | payer MEDICARE, MEDICAID ==
[2022-08-14] MEDS ORDERED: Sodium Chloride 0.9% 1,000 ML IV ONE (18:45)
[2022-08-14] MEDS ORDERED: Morphine 4 MG/ML Syringe IVPUSH ONE (18:45)
[2022-08-14] MEDS ORDERED: Iopamidol 755 Mg/ML 100 ML Bottle IVPUSH ONE (19:33)
[2022-08-14] MEDS ORDERED: Sodium Chloride 0.9% 10 ML Syringe FLUSH ONE (19:45)
[2022-08-14] MEDS ORDERED: HYDROmorphone 1 MG/ML Syringe IVPUSH ONE (21:20)
[2022-08-14] MEDS ORDERED: Ondansetron 4 MG/2 ML SDV IVPUSH ONE (21:20)
[2022-08-14] MEDS ORDERED: Ibuprofen 600 MG Tab PO ONE (21:42)
[2022-08-14] MEDS ORDERED: Orphenadrine 100 MG Tab.ER PO STA (21:42)
[2022-08-14 22:50] VITALS: BP 122/77; PULSE 68
== END 2022-08-14 22:26 | disposition home or self-care (01) ==
LOC: JD.ED 17:59
DX: M62.838 Other muscle spasm (principal); J44.9 Chronic obstructive pulmonary disease, unspecified; E78.00 Pure hypercholesterolemia, unspecified; Z79.899 Other long term (current) drug therapy
CPT/HCPCS: 36415; 70496; 70498; 71045; 80053; 83735; 84484; 85025; 93005; 96361; 96374; 96375; 99284; A9270; J1170; J2405; J3490; J7030; Q9967; 93010

== ENCOUNTER 2023-02-17 09:31 | Emergency (ER) | payer MEDICARE, MEDICAID ==
[2023-02-17] MEDS ORDERED: ClonazePAM 1 MG Tab PO STA (10:31)
[2023-02-17 10:48] LABS: HEMATOCRIT 42.7 % (40.1-51.0); HEMOGLOBIN 14.5 gm/dl (13.7-17.5); MEAN CORPUSCULAR HEMOGLOBIN 29.2 pg (25.7-32.2); MEAN CORPUSCULAR VOLUME 85.9 fl (79.0-92.2); PLATELET COUNT,PLT 279 K/mm3 (163-337); RED BLOOD CELL COUNT 4.97 M/mm3 (4.63-6.08); WHITE BLOOD CELL COUNT,WBC 7.65 K/mm3 (4.23-9.07)
[2023-02-17 10:56] LABS: ANION GAP 17.5 (5-15); BILIRUBIN TOTAL 1.3 mg/dL (0.2-1.0); C-REACTIVE PROTEIN 1.3 mg/dL (<1.0); EST CRCL DRUG DOSING (CG) 74.35 mL/min; MAGNESIUM 1.9 mg/dL (1.8-2.4); POTASSIUM,K 3.5 mEq/L (3.5-5.1); PROTEIN TOTAL,TP 8.2 g/dl (6.4-8.2)
[2023-02-17] MEDS ORDERED: Sodium Chloride 0.9% 1,000 ML IV ONE ×2 (11:17→13:46)
[2023-02-17 11:50] LABS: BAND PERCENT MAN 0 % (0-10); BASOPHILS PERCENT MAN 0 (0.2-1.2); EOSINOPHILS PERCENT MAN 1 % (0.8-7.0); LYMPHOCYTES % ATYPICAL MANUAL 0 %; LYMPHOCYTES PERCENT MAN 12 % (20-40); MONOCYTES PERCENT MAN 0 % (2-10); PLATELET COUNT ESTIMATE ADEQUATE
[2023-02-17 17:11] VITALS: BP 164/98; PULSE 102
== END 2023-02-17 16:00 | disposition home or self-care (01) ==
LOC: JD.ED 09:31
DX: F13.939 Sedative, hypnotic or anxiolytic use, unspecified with withdrawal, unspecified (principal); I95.1 Orthostatic hypotension; E78.00 Pure hypercholesterolemia, unspecified; I10 Essential (primary) hypertension; J44.9 Chronic obstructive pulmonary disease, unspecified; Z79.899 Other long term (current) drug therapy; Z79.51 Long term (current) use of inhaled steroids; Z20.822 Contact with and (suspected) exposure to COVID-19
CPT/HCPCS: 36415; 80053; 83735; 84484; 85007; 85027; 86140; 87804; 93005; 96360; 96361; 99285; A9270; J7030; U0002; 93010; 99284

== ENCOUNTER 2024-01-27 07:37 | Day surgery (SDC) | payer MEDICARE, MEDICAID ==
[~2024-01-27 07:37] MED LIST changes: -Lidocaine 1%/Sod Bicarbonate in NS 8.4% 1 ML Syringe IDERM PRN; +Sodium Chloride 0.9% 10 ML Syringe FLUSH SCH
[2024-01-27] MEDS: Lactated Ringers 1,000 ML IV SCH (08:00)
[2024-01-27] MEDS ORDERED: Propofol 200 MG/20 ML SDV ONE ×2 (08:17→09:09)
[2024-01-27] MEDS ORDERED: Ondansetron 4 MG/2 ML SDV IVPUSH PRN (08:35)
[2024-01-27] MEDS ORDERED: Midazolam 1 MG/ML 2 ML SDV ONE (09:08)
[2024-01-27] MEDS ORDERED: Lidocaine 1% 2 ML ONE (09:12)
[2024-01-27 11:03] VITALS: BP 132/70; PULSE 70
== END 2024-01-27 10:45 | disposition home or self-care (01) ==
LOC: JD.SDS 07:37
PROVIDERS: ATTEND Surgery
DX: Z12.11 Encounter for screening for malignant neoplasm of colon (principal); D12.2 Benign neoplasm of ascending colon; D12.4 Benign neoplasm of descending colon; D12.8 Benign neoplasm of rectum; K63.5 Polyp of colon; D64.9 Anemia, unspecified; K21.9 Gastro-esophageal reflux disease without esophagitis; E78.00 Pure hypercholesterolemia, unspecified; E11.9 Type 2 diabetes mellitus without complications; I10 Essential (primary) hypertension; J44.9 Chronic obstructive pulmonary disease, unspecified; F17.210 Nicotine dependence, cigarettes, uncomplicated; Z86.010 Personal history of colon polyps; Z88.5 Allergy status to narcotic agent; Z79.899 Other long term (current) drug therapy
CPT/HCPCS: 45380; J2250; J2704; J7120; J3490

== ENCOUNTER 2024-09-12 06:56 | Emergency (ER) | payer MEDICARE, MEDICAID ==
[2024-09-12 08:21] LABS: BASOPHILS PERCENT AUTO 0.4 % (0.0-1.0); EOSINOPHILS ABSOLUTE AUTO 0.3 K/mm3 (0.0-0.4); EOSINOPHILS PERCENT AUTO 2.5 % (0.0-6.0); HEMATOCRIT 36.2 % (42.0-52.0); HEMOGLOBIN 12.3 gm/dl (14.0-18.0); IMMATURE GRAN ABSOLUTE AUTO 0.04 K/mm3 (0.00-0.05); IMMATURE GRAN PERCENT AUTO 0.4 % (0.0-0.4); LYMPHOCYTES ABSOLUTE AUTO 0.8 K/mm3 (1.0-4.8); LYMPHOCYTES PERCENT AUTO 7.7 % (24.0-44.0); MEAN CORPUSCULAR HEMOGLOBIN 28.7 pg (28.0-32.0); MEAN CORPUSCULAR VOLUME 84.6 fl (83.0-99.0); MEAN PLATELET VOLUME 9.5 fl (9.4-12.4); MONOCYTES ABSOLUTE AUTO 0.9 K/mm3 (0.0-0.8); NEUTROPHILS ABSOLUTE AUTO 8.1 K/mm3 (1.8-7.7); PLATELET COUNT,PLT 250 K/mm3 (150-400); RED BLOOD CELL COUNT 4.28 M/mm3 (4.52-5.90); WHITE BLOOD CELL COUNT,WBC 10.15 K/mm3 (3.9-11.3)
[2024-09-12 08:44] LABS: A/G RATIO 1.1 (1-2); ALBUMIN 3.6 g/dl (3.4-5.0); ANION GAP 15.3 (5-15); BILIRUBIN TOTAL 0.7 mg/dL (0.2-1.0); BUN/CREATININE RATIO 9.2 (14-18); C-REACTIVE PROTEIN 1.77 mg/dL (<0.30); CALCIUM 8.8 mg/dL (8.5-10.1); CREATININE 1.2 mg/dL (0.7-1.3); EST CRCL DRUG DOSING (CG) 61.03 mL/min; POTASSIUM,K 4.3 mEq/L (3.5-5.1)
[2024-09-12] MEDS: Bupivacaine 0.25% 10 ML SDV INJECT ONE (09:30)
[2024-09-12] MEDS: Acetaminophen 325 MG Tab PO ONE (10:38)
[2024-09-12 11:31] VITALS: BP 132/87; PULSE 97
== END 2024-09-12 10:40 | disposition home or self-care (01) ==
LOC: JD.ED 06:56
DX: M54.2 Cervicalgia (principal); I10 Essential (primary) hypertension; E78.00 Pure hypercholesterolemia, unspecified; F17.210 Nicotine dependence, cigarettes, uncomplicated; Z88.5 Allergy status to narcotic agent; Z79.899 Other long term (current) drug therapy
CPT/HCPCS: 36415; 80053; 85025; 86140; 99283; A9270; J0665

== ENCOUNTER 2025-01-29 18:44 | Emergency (ER) | payer MEDICARE, MEDICAID ==
[2025-01-29 19:29] LABS: BASOPHILS ABSOLUTE AUTO 0.1 K/mm3 (0.0-0.2); BASOPHILS PERCENT AUTO 0.7 % (0.0-1.0); EOSINOPHILS ABSOLUTE AUTO 0.6 K/mm3 (0.0-0.4); EOSINOPHILS PERCENT AUTO 5.5 % (0.0-6.0); IMMATURE GRAN ABSOLUTE AUTO 0.03 K/mm3 (0.00-0.05); IMMATURE GRAN PERCENT AUTO 0.3 % (0.0-0.4); LYMPHOCYTES ABSOLUTE AUTO 1.3 K/mm3 (1.0-4.8); LYMPHOCYTES PERCENT AUTO 12.5 % (24.0-44.0); MEAN PLATELET VOLUME 9.6 fl (9.4-12.4); MONOCYTES ABSOLUTE AUTO 0.8 K/mm3 (0.0-0.8); MONOCYTES PERCENT AUTO 7.3 % (0.0-8.0); NEUTROPHILS ABSOLUTE AUTO 7.7 K/mm3 (1.8-7.7); NEUTROPHILS PERCENT AUTO 73.7 % (41.0-71.0); NRBC ABSOLUTE 0.00 (0.00-0.02); NRBC PERCENT 0.0 % (0.0-0.2); PLATELET COUNT,PLT 350 K/mm3 (150-400); RED BLOOD CELL COUNT 3.97 M/mm3 (4.52-5.90); WHITE BLOOD CELL COUNT,WBC 10.44 K/mm3 (3.9-11.3)
[2025-01-29 19:58] LABS: A/G RATIO 0.8 (1-2); ALANINE AMINOTRANSFERASE,ALT 16.0 U/L (16-63); ASPARTATE AMNIOTRANSFERASE,AST 18.0 U/L (15-37); BILIRUBIN TOTAL 0.4 mg/dL (0.2-1.0); BLOOD UREA NITROGEN,BUN 10.0 mg/dL (7-18); CARBON DIOXIDE,CO2 24.0 mEq/L (21-32); CHLORIDE,CL 101.0 mEq/L (98-107); CREATININE 1.2 mg/dL (0.7-1.3); EST CRCL DRUG DOSING (CG) 60.11 mL/min; ESTIMATED GFR 63.0 mL/min (>60); GLUCOSE RANDOM 104.0 mg/dL (70-99); POTASSIUM,K 3.4 mEq/L (3.5-5.1); PROTEIN TOTAL,TP 7.0 g/dl (6.4-8.2); SODIUM,NA 136.0 mEq/L (136-145); TROPONIN I HIGH SENSITIVITY 4.0 pg/mL (<=76)
[2025-01-29 21:29] VITALS: BP 133/78; PULSE 78
== END 2025-01-29 21:20 | disposition home or self-care (01) ==
LOC: JD.ED 18:44
DX: R53.1 Weakness (principal); I95.9 Hypotension, unspecified; J18.9 Pneumonia, unspecified organism; R91.1 Solitary pulmonary nodule; S22.31XD Fracture of one rib, right side, subsequent encounter for fracture with routine healing; I10 Essential (primary) hypertension; J44.89 Other specified chronic obstructive pulmonary disease; E78.00 Pure hypercholesterolemia, unspecified; F17.200 Nicotine dependence, unspecified, uncomplicated; Z88.5 Allergy status to narcotic agent; Z79.899 Other long term (current) drug therapy; X58.XXXD Exposure to other specified factors, subsequent encounter
CPT/HCPCS: 36415; 71045; 80053; 83735; 83880; 84484; 85025; 93005; 96361; 96365; 99285; J0696; J7030

== ENCOUNTER 2025-06-10 09:11 | Emergency (ER) | payer MEDICARE, MEDICAID ==
[2025-06-10] MEDS: Labetalol 100 MG/20 ML MDV IVPUSH ONE (11:03)
[2025-06-10] MEDS: Sodium Chloride 0.9% 10 ML Syringe FLUSH PRN (11:03)
[2025-06-10 11:26] LABS: A/G RATIO 0.9 (1-2); ALANINE AMINOTRANSFERASE,ALT 18.0 U/L (16-63); ASPARTATE AMNIOTRANSFERASE,AST 18.0 U/L (15-37); BILIRUBIN TOTAL 0.9 mg/dL (0.2-1.0); BLOOD UREA NITROGEN,BUN 9.0 mg/dL (7-18); CARBON DIOXIDE,CO2 28.0 mEq/L (21-32); CHLORIDE,CL 102.0 mEq/L (98-107); CREATININE 1.2 mg/dL (0.7-1.3); EST CRCL DRUG DOSING (CG) 60.11 mL/min; ESTIMATED GFR 63.0 mL/min (>60); GLUCOSE RANDOM 100.0 mg/dL (70-99); POTASSIUM,K 4.0 mEq/L (3.5-5.1); PROTEIN TOTAL,TP 7.7 g/dl (6.4-8.2); SODIUM,NA 140.0 mEq/L (136-145)
[2025-06-10 11:27] LABS: BASOPHILS ABSOLUTE AUTO 0.1 K/mm3 (0.0-0.2); BASOPHILS PERCENT AUTO 0.9 % (0.0-1.0); EOSINOPHILS ABSOLUTE AUTO 0.3 K/mm3 (0.0-0.4); EOSINOPHILS PERCENT AUTO 4.5 % (0.0-6.0); IMMATURE GRAN ABSOLUTE AUTO 0.01 K/mm3 (0.00-0.05); IMMATURE GRAN PERCENT AUTO 0.2 % (0.0-0.4); LYMPHOCYTES ABSOLUTE AUTO 0.8 K/mm3 (1.0-4.8); LYMPHOCYTES PERCENT AUTO 12.4 % (24.0-44.0); MEAN PLATELET VOLUME 9.4 fl (9.4-12.4); MONOCYTES ABSOLUTE AUTO 0.5 K/mm3 (0.0-0.8); MONOCYTES PERCENT AUTO 8.0 % (0.0-8.0); NEUTROPHILS ABSOLUTE AUTO 4.8 K/mm3 (1.8-7.7); NEUTROPHILS PERCENT AUTO 74.0 % (41.0-71.0); NRBC ABSOLUTE 0.00 (0.00-0.02); NRBC PERCENT 0.0 % (0.0-0.2); PLATELET COUNT,PLT 279 K/mm3 (150-400); RED BLOOD CELL COUNT 4.96 M/mm3 (4.52-5.90); WHITE BLOOD CELL COUNT,WBC 6.46 K/mm3 (3.9-11.3)
[2025-06-10 13:06] VITALS: BP 157/91; PULSE 66
== END 2025-06-10 13:05 | disposition home or self-care (01) ==
LOC: JD.ED 09:11
DX: I10 Essential (primary) hypertension (principal); J44.89 Other specified chronic obstructive pulmonary disease; F17.200 Nicotine dependence, unspecified, uncomplicated; Z88.5 Allergy status to narcotic agent; Z79.899 Other long term (current) drug therapy; Z86.16 Personal history of COVID-19
CPT/HCPCS: 36415; 80053; 85025; 93005; 96374; 99283-25; J1920